=== PATIENT | female | born 1955 | race Caucasian/White ===

== ENCOUNTER 2023-09-16 09:03 | Outpatient (CLI) | payer MEDICARE | END 2023-09-16 09:04 | disposition home or self-care (01) | LOC: CSHMAMMO 09:03 | PROVIDERS: ATTEND Obstetrics & Gynecology | DX: Z12.31 Encounter for screening mammogram for malignant neoplasm of breast (principal); Z91.89 Other specified personal risk factors, not elsewhere classified | CPT/HCPCS: 77063; 77067 ==

== ENCOUNTER 2024-03-07 13:34 | Outpatient (CLI) | payer MEDICARE | END 2024-03-07 13:35 | disposition home or self-care (01) | LOC: CSHCT 13:34 | PROVIDERS: ATTEND Physician Assistant | DX: J01.91 Acute recurrent sinusitis, unspecified (principal); J34.89 Other specified disorders of nose and nasal sinuses ==